=== PATIENT | male | born 1980 | race Caucasian/White ===

== ENCOUNTER 2023-09-23 12:56 | Emergency (ER) | payer OTHER ==
[~2023-09-23] VITALS: Ht 170.2 cm; Wt 74.8 kg
[2023-09-23 13:14] VITALS: BP 119/72; PULSE 73; RESP 20; TEMP 98.7; O2SAT 97
[2023-09-23] MEDS: KETOROLAC 30 MG/ML VIAL IM ONE (15:08)
[2023-09-23] MEDS ORDERED: CYCL-711 PO (15:15)
[2023-09-23] MEDS ORDERED: NAPR-1704 PO (15:15)
[2023-09-23] MEDS ORDERED: CAPS1ADH5 TP (15:15)
== END 2023-09-23 15:33 | disposition home or self-care (01) ==
LOC: MED 12:56
DX: S39.012A Strain of muscle, fascia and tendon of lower back, initial encounter (principal); X58.XXXA Exposure to other specified factors, initial encounter; Y92.89 Other specified places as the place of occurrence of the external cause; Y93.89 Activity, other specified; Y99.8 Other external cause status
CPT/HCPCS: 72100; 96372; 99283; J1885